=== PATIENT | female | born 1955 | race Caucasian/White ===

== ENCOUNTER → 2016-12-21 | Outpatient (REF) ==
--- NOTE | 2016-12-22 03:32 | REP ---
Clinical: Pain and disability. Technique: AP, lateral, cone down views of the lumbosacral spine. Comparison: 04/22/2015. Findings: Subtle compression deformity involving the superior endplate of L2 with associated reversal of normal lordosis is identified and of indeterminate age. Findings appear relatively new when compared to 04/22/2015. Moderate multilevel degenerative changes are also appreciated including anterior spurring/osteophyte formation, endplate sclerosis, disc space narrowing and hypertrophic facet changes throughout the lumbosacral spine. Impression: 1. Mild compression deformity at L2 relatively new compared to 04/22/2015 although appearing nonacute. Correlation is recommended. 2. Moderate multilevel degenerative changes throughout the lumbar spine. Signed by Justice White MD 12/22/2016 03:23 A
== END ==
LOC: M SMT 12:57
PROVIDERS: ATTEND Internal Medicine
DX: M54.5 Low back pain (principal)

== ENCOUNTER 2017-11-16 08:53 | Outpatient (RCR) | payer BC | END 2017-12-07 | LOC: M CR 08:53 | DX: Z98.61 Coronary angioplasty status (principal) | CPT/HCPCS: 93798 ==

== ENCOUNTER 2017-12-11 09:39 | Outpatient (RCR) | payer BC | END 2018-01-06 | LOC: M CR 09:39 | DX: Z51.89 Encounter for other specified aftercare (principal); Z98.61 Coronary angioplasty status | CPT/HCPCS: 93798 ==